=== PATIENT | female | born 1960 | race Caucasian/White ===

== ENCOUNTER 2021-08-11 10:04 | Outpatient (REF) | payer OTHER, SELFPAY | END 2021-08-11 10:05 | disposition home or self-care (01) | LOC: HO.HMGCLDS 10:04 | PROVIDERS: PCP Internal Medicine; Visit Provider Internal Medicine | DX: Z20.822 Contact with and (suspected) exposure to COVID-19 (principal) | CPT/HCPCS: C9803; U0003; U0005 ==

== ENCOUNTER 2024-04-26 14:05 | Outpatient (AMB) | payer OTHER, SELFPAY ==
--- NOTE | 2024-04-26 14:06 | AM.OFFWIN_ITS ---
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 Patient Tobacco Use Status: Former Tobacco user Allergies levofloxacin [Levaquin] Allergy (Unknown, Verified 04/26/24 14:16) achy joints penicillin V Allergy (Unknown, Verified 04/26/24 14:16) unknown Do you need a note to return to daycare/school/sports/work: No HPI HPI Comments 2 History of Present Illness0 Details Here today with concerns for a skin infection after a biopsy performed on Sunday by Dermatology to her right posterior thigh. she has been applying antibiotic topical ointment followed by a Band-Aid daily. She was not treated with p.o. antibiotics before or after the biopsy. She worries because she thinks there may be pus and some redness around this area. She denies any fever or chills. [facility] Social History Patient Tobacco Use Status: Former Tobacco user Review of Systems Const All systems reviewed & are unremarkable except as noted in HPI and below Physical Exam Vital Signs: Last Vital Signs Pulse 72 04/26/24 14:07 BP 110/74 04/26/24 14:07 Pulse Ox 98 04/26/24 14:07 Oxygen Delivery Method Room Air 04/26/24 14:07 BMI result Body Mass Index 40.6 Extrem Upper/lower leg/hip images: 2 1. Nickel size biopsy area, base is yellow and moist, healthy granulation tissue on the periphery, very scant erythema periwound however this looks more inflammatory than infectious. There is no streaking or warmth. This area was cleansed, Xeroform gauze applied followed by a nonadherent dressing and paper tape. Assessment & Plan Assessment & Plan (1) Status post biopsy of skin: Code(s): Z98.890 - Other specified postprocedural states Plan: . This note is constructed using voice recognition software. While every effort has been made to ensure accuracy in toilet and laundry soap supervisor, still errors may have been included Sometimes, these errors may affect the content or meaning of the given sentence . Total time spent caring for the patient today was 40 minutes. This includes time spent before the visit reviewing the chart, time spent during the visit, and time spent after the visit on documentation Patient Instructions: The area actually looks to be healing well. I have advised her to stop using the antibiotic ointment and start using Xeroform gauze followed by a dry clean dressing daily. Advised to wash the area once per day with antibacterial soap and water. Monitor the area for redness, drainage, warmth. Follow-up with Dermatology on Sunday. I did provide her with the rest of Xeroform gauze. Coding Level of Care Code Est Pt Level 4 (91654) Diagnoses Status post biopsy of skin Z98.890
[2024-04-26 14:07] VITALS: BP 110/74; PULSE 72; O2SAT 98; BMI 40.6
== END 2024-04-26 14:42 | disposition home or self-care (01) ==
PROVIDERS: PCP Internal Medicine; Visit Provider Nurse Practitioner Family
DX: Z98.890 Other specified postprocedural states (principal)
CPT/HCPCS: 99214

== ENCOUNTER → 2024-12-27 13:09 | Outpatient (BNVA) | payer OTHER, SELFPAY | PROVIDERS: PCP Internal Medicine ==